=== PATIENT | male | born 1985 | race African-American/Black ===

== ENCOUNTER 2022-07-17 16:51 | Emergency (ER) | payer OTHER ==
[~2022-07-17] VITALS: Ht 182.9 cm; Wt 105.0 kg
[2022-07-17 17:23] VITALS: BP 151/83
[2022-07-17] MEDS ORDERED: IBUP-2029 MT (20:04)
== END 2022-07-17 20:30 | disposition home or self-care (01) ==
LOC: ER 16:51
DX: S62.307A Unspecified fracture of fifth metacarpal bone, left hand, initial encounter for closed fracture (principal); S62.308A Unspecified fracture of other metacarpal bone, initial encounter for closed fracture; W18.30XA Fall on same level, unspecified, initial encounter; Y93.89 Activity, other specified; Y92.89 Other specified places as the place of occurrence of the external cause; Y99.8 Other external cause status
CPT/HCPCS: 29125; 73130; 99283

== ENCOUNTER 2022-07-20 14:20 | Emergency (ER) | payer OTHER ==
[~2022-07-20] VITALS: Ht 172.7 cm; Wt 85.0 kg
[~2022-07-20 14:20] MED LIST: IBUP-2029 MT
[2022-07-20 19:04] VITALS: BP 113/65
== END 2022-07-20 19:06 | disposition home or self-care (01) ==
LOC: ER 14:53
DX: S62.397A Other fracture of fifth metacarpal bone, left hand, initial encounter for closed fracture (principal); X58.XXXA Exposure to other specified factors, initial encounter; Y93.89 Activity, other specified; Y92.89 Other specified places as the place of occurrence of the external cause; Y99.8 Other external cause status; Z87.891 Personal history of nicotine dependence
CPT/HCPCS: 29125; 73120; 99283